=== PATIENT | female | born 1960 | race Hispanic/Latino ===

== ENCOUNTER 2021-11-22 11:21 | Emergency (ER) | payer OTHER ==
[~2021-11-22] VITALS: Ht 157.5 cm; Wt 78.5 kg
[2021-11-22] MEDS ORDERED: KETOROLAC TROMETHAMINE 60 MG/2 ML VIAL IM ONE (12:00)
[2021-11-22] MEDS ORDERED: Morphine 4mg Syringe 4 MG/ML INJ IV ONE (13:00)
[2021-11-22] MEDS ORDERED: IBUPROFEN600 MG PO (13:09)
[2021-11-22] MEDS ORDERED: ULTRAM50 MG PO (13:09)
[2021-11-24] MEDS ORDERED: CRESTOR10 MG PO (15:16)
[2021-11-24] MEDS ORDERED: RYBELSUS14 MG PO (15:17)
[2021-11-24] MEDS ORDERED: LOSARTAN POTASS25 MG PO (15:17)
[2021-11-24] MEDS ORDERED: METFORMIN HCL500 MG PO (15:17)
[2021-11-24] MEDS ORDERED: LEXAPRO20 MG PO (15:18)
[2021-11-24] MEDS ORDERED: ASPIRIN81 MG PO (15:18)
[2021-11-26] MEDS ORDERED: hydrocodone PO (08:19)
== END 2021-11-22 13:29 | disposition home or self-care (01) ==
LOC: ER 11:41
DX: S42.211A Unspecified displaced fracture of surgical neck of right humerus, initial encounter for closed fracture (principal); W01.0XXA Fall on same level from slipping, tripping and stumbling without subsequent striking against object, initial encounter; Y93.66 Activity, soccer; Y92.322 Soccer field as the place of occurrence of the external cause; I10 Essential (primary) hypertension; E11.9 Type 2 diabetes mellitus without complications; D64.9 Anemia, unspecified
CPT/HCPCS: 73030; 73060; 99284; J1885; J2270

== ENCOUNTER → 2021-11-26 | Day surgery (SDC) | payer OTHER ==
[2021-11-25 12:03] LABS: ANION GAP 12.9 mmol/L (8-16); CALCIUM 9.3 mg/dL (8.4-10.2); CREATININE, SERUM 0.86 mg/dL (0.57-1.11); POTASSIUM 4.9 mmol/L (3.5-5.1)
[~2021-11-26] MED LIST: ASPIRIN81 MG PO; ATROPINE SULFATE 1 MG/ML VIAL ONE; BUPIVACAINE/EPINEPHRINE 0.25% 10 ML SDV INJ ONE; CRESTOR10 MG PO; EPHEDRINE SULFATE INJ 50 MG/ML VIAL ONE; FENTANYL CITRATE/PF 100MCG/2 ML INJ ONE; IBUPROFEN600 MG PO; LEXAPRO20 MG PO; LIDOCAINE 1% W/EPINEPHRINE 20 ML VIAL ONE; LIDOCAINE HCL 2% LOCAL INJ 5 ML SDV VIAL INJ ONE; LOSARTAN POTASS25 MG PO; METFORMIN HCL500 MG PO; MIDAZOLAM HCL 2 MG/2 ML VIAL ONE; NEOSTIGMINE 1 MG/ML 10ML VIAL ONE; ONDANSETRON HCL INJ 2MG/ML 2ML 2 MG/ML VIAL ONE; PHENYLEPHRINE HCL 1% 10 MG/ML VIAL ONE; POVIDONE IODINE 0.05% 0.05 % ML PO ONE; PROPOFOL IV EMULSION 10 MG/ML 20 ML VIAL ONE; ROCURONIUM BROMIDE 10 MG/ML 5ML VIAL IV ONE; ROPIVACAINE 0.5% 5 MG/ML 30 ML SDV ONE; RYBELSUS14 MG PO; ULTRAM50 MG PO; hydrocodone PO
[2021-11-26 12:10] VITALS: BP 164/74
== END | disposition home or self-care (01) ==
LOC: OR 07:58
PROVIDERS: ATTEND Specialist
DX: S42.291A Other displaced fracture of upper end of right humerus, initial encounter for closed fracture (principal); E11.9 Type 2 diabetes mellitus without complications; I10 Essential (primary) hypertension; E78.5 Hyperlipidemia, unspecified; R00.1 Bradycardia, unspecified; J45.909 Unspecified asthma, uncomplicated; F41.9 Anxiety disorder, unspecified; W01.0XXA Fall on same level from slipping, tripping and stumbling without subsequent striking against object, initial encounter; Y93.66 Activity, soccer; Y99.8 Other external cause status; Z88.0 Allergy status to penicillin; Z01.810 Encounter for preprocedural cardiovascular examination; Z01.812 Encounter for preprocedural laboratory examination; Z20.822 Contact with and (suspected) exposure to COVID-19; Z79.82 Long term (current) use of aspirin; Z79.84 Long term (current) use of oral hypoglycemic drugs; Z79.899 Other long term (current) drug therapy
CPT/HCPCS: 23615; 36415 ×2; 76000; 80048; 82948; 93005; C1713 ×8; J0461; J2001; J2250; J2370; J2405; J2704; J2710; J2795; J3010; U0002